=== PATIENT | female | born 1940 | race African-American/Black ===

== ENCOUNTER 2016-12-30 09:15 | Outpatient (RCR) | payer OTHER ==
[~2016-12-30 09:15] MED LIST: ASPIRIN-LOW81 MG ORAL; LISINOPRIL5 MG ORAL; SYNTHROID75 MCG ORAL; VERAPAMIL ER180 MG PO; VITAMIN D1000 UNI1 ORAL
== END 2017-01-04 | disposition home or self-care (01) ==
LOC: PTY 09:15
DX: G62.9 Polyneuropathy, unspecified (principal); G60.3 Idiopathic progressive neuropathy; M81.0 Age-related osteoporosis without current pathological fracture; M19.90 Unspecified osteoarthritis, unspecified site; Z91.013 Allergy to seafood

== ENCOUNTER 2017-01-18 10:08 | Outpatient (RCR) | payer OTHER | END 2017-02-03 | disposition home or self-care (01) | LOC: PTY 10:08 | DX: G62.9 Polyneuropathy, unspecified (principal); G60.3 Idiopathic progressive neuropathy ==